=== PATIENT | female | born 1945 | race Caucasian/White ===

== ENCOUNTER 2017-10-17 09:42 | Outpatient (CLI) | payer MEDICARE, OTHER ==
[2017-10-17] VITALS (19 sets, daily range): BP systolic 110–143; BP diastolic 64–87
[~2017-10-17 09:42] MED LIST: ASPI-611 PO; ATOR10TA70 PO; BUPR150T8 PO; COU5T PO; CYCL-1 PO; FURO-150 PO; GLIP-126 PO; LISI-600 PO; METF10002 PO; MULT1TAB74 PO; NITR0.4T48 SL; SITA100T15 PO; SOTA80TA69 PO; ZOLP5TAB8 PO
== END 2017-10-17 23:59 | disposition home or self-care (01) ==
LOC: CARD DIAG 09:42
PROVIDERS: ATTEND Internal Medicine Interventional Cardiology
DX: I95.9 Hypotension, unspecified (principal); I10 Essential (primary) hypertension; E11.9 Type 2 diabetes mellitus without complications; Z90.710 Acquired absence of both cervix and uterus; Z85.820 Personal history of malignant melanoma of skin
CPT/HCPCS: 93660

== ENCOUNTER 2018-08-16 10:23 | Emergency (ER) | payer MEDICARE, OTHER ==
[~2018-08-16] VITALS: Ht 170.2 cm; Wt 89.4 kg
[~2018-08-16 10:23] MED LIST changes: +METF-438 PO; -METF10002 PO; -SOTA80TA69 PO; +SOTA80TA73 PO
[2018-08-16 11:09] LABS: BASOPHILS % (AUTO) 0.2 % (0-1); EOSINOPHILS # (AUTO) 0.2 X10'3 (0-0.9); EOSINOPHILS % (AUTO) 2.5 % (0-6); HEMATOCRIT 38.9 % (35.0-45.0); HEMOGLOBIN 12.7 g/dl (12.0-16.0); LYMPHOCYTES # (AUTO) 1.2 X10'3 (1.1-4.8); LYMPHOCYTES % (AUTO) 18.2 % (21-51); MEAN CORPUSCULAR HEMOGLOBIN 31.3 PG (27.0-31.0); MEAN CORPUSCULAR HGB CONC 32.7 % (33.0-36.5); MEAN CORPUSCULAR VOLUME 95.9 FL (78-98); MONOCYTES # (AUTO) 0.4 X10'3 (0-0.9); MONOCYTES % (AUTO) 5.6 % (2-12); NEUTROPHILS % (AUTO) 73.5 % (42-75); PLATELET COUNT 300 X10'3 (140-440); RED BLOOD COUNT 4.06 X10'6 (4.20-5.60); RED CELL DISTRIBUTION WIDTH 14.1 % (11.5-14.5); WHITE BLOOD COUNT 6.8 X10'3 (4.5-11.0)
[2018-08-16 11:19] LABS: INR 1.9 INR; PROTHROMBIN TIME 18.7 SECONDS (9.0-12.0)
[2018-08-16 11:23] LABS: ALANINE AMINOTRANSFERASE 29 U/L (12-78); ALBUMIN 3.4 G/DL (3.4-5.0); ALKALINE PHOSPHATASE 155 IU/L (46-116); ANION GAP 12 (8-16); ASPARTATE AMINO TRANSFERASE 22 U/L (10-37); BILIRUBIN,TOTAL 0.4 MG/DL (0.1-1.0); BLOOD UREA NITROGEN 25 MG/DL (7-18); BUN/CREATININE RATIO 21.4 (6.6-38.0); CALCIUM 9.3 MG/DL (8.5-10.1); CHLORIDE 102 MMOL/L (99-107); CREATININE 1.17 MG/DL (0.40-0.90); GLUCOSE 195 MG/DL (70-104); POTASSIUM 3.9 MMOL/L (3.5-5.1); SODIUM 140 MMOL/L (135-145); TOTAL CARBON DIOXIDE 26.3 MMOL/L (24-32); TOTAL PROTEIN 6.8 G/DL (6.4-8.2); eGFR 46 ML/MIN
[2018-08-16] MEDS ORDERED: acetaminophen 325mg tablet PO ONE (12:10)
[2018-08-16 12:48] VITALS: BP 128/55
== END 2018-08-16 12:52 | disposition home or self-care (01) ==
LOC: ER 10:23
DX: S00.12XA Contusion of left eyelid and periocular area, initial encounter (principal); S00.11XA Contusion of right eyelid and periocular area, initial encounter; S00.83XA Contusion of other part of head, initial encounter; S09.90XA Unspecified injury of head, initial encounter; I48.91 Unspecified atrial fibrillation; I10 Essential (primary) hypertension; E11.9 Type 2 diabetes mellitus without complications; M19.90 Unspecified osteoarthritis, unspecified site; Z56.0 Unemployment, unspecified; Z90.49 Acquired absence of other specified parts of digestive tract; Z90.710 Acquired absence of both cervix and uterus; Z95.0 Presence of cardiac pacemaker; Z98.890 Other specified postprocedural states; Z88.6 Allergy status to analgesic agent; Z79.82 Long term (current) use of aspirin; Z79.899 Other long term (current) drug therapy; Z79.01 Long term (current) use of anticoagulants; W01.198A Fall on same level from slipping, tripping and stumbling with subsequent striking against other object, initial encounter; Y93.89 Activity, other specified; Y92.89 Other specified places as the place of occurrence of the external cause; Y99.9 Unspecified external cause status
CPT/HCPCS: 36415; 70450; 70486; 80053; 85025; 85610; 93005; 99285

== ENCOUNTER 2020-02-17 01:30 | Inpatient (IN) | payer MEDICARE ==
[~2020-02-17] VITALS: Ht 167.6 cm; Wt 86.4 kg
[2020-02-17] VITALS (13 sets, daily range): BP systolic 98–132; BP diastolic 37–86
[~2020-02-17 01:30] MED LIST changes: +AMIO200T61 PO; -ASPI-611 PO; -ATOR10TA70 PO; +ATOR40TA72 PO; +BACL10TA2 PO; +BUPR-72 PO; -BUPR150T8 PO; -COU5T PO; -CYCL-1 PO; +CYCL-394 PO; -FURO-150 PO; -GLIP-126 PO; +LIRA0.6P2 SQ; -LISI-600 PO; +LISI1TAB32 PO; +LORA-268 PO; -METF-438 PO; +METO-395 PO; -MULT1TAB74 PO; -NITR0.4T48 SL; -SITA100T15 PO; -SOTA80TA73 PO; +WARF2.5T82 PO
[2020-02-17] MEDS ORDERED: METF500T PO (01:55)
[2020-02-17 02:03] LABS: BASOPHILS % (AUTO) 0.5 % (0-1); EOSINOPHILS # (AUTO) 0.2 X10'3 (0-0.9); EOSINOPHILS % (AUTO) 3.3 % (0-6); HEMATOCRIT 35.4 % (35.0-45.0); HEMOGLOBIN 11.7 g/dl (12.0-16.0); MEAN CORPUSCULAR HEMOGLOBIN 32.6 PG (27.0-31.0); MEAN CORPUSCULAR HGB CONC 33.1 g/dL (33.0-36.5); MEAN CORPUSCULAR VOLUME 98.3 FL (78-98); MEAN PLATELET VOLUME 8.5 FL (7.4-10.4); MONOCYTES # (AUTO) 0.4 X10'3 (0-0.9); MONOCYTES % (AUTO) 5.6 % (2-12); NEUTROPHILS # (AUTO) 4.7 X10'3 (1.8-7.7); NEUTROPHILS % (AUTO) 63.6 % (42-75); PLATELET COUNT 282 X10'3 (140-440); RED CELL DISTRIBUTION WIDTH 14.4 % (11.5-14.5); WHITE BLOOD COUNT 7.4 X10'3 (4.5-11.0)
[2020-02-17 02:15] LABS: ALANINE AMINOTRANSFERASE 31 U/L (12-78); ALBUMIN 3.7 G/DL (3.4-5.0); ALBUMIN/GLOBULIN RATIO 1.2 (1.1-1.5); ALKALINE PHOSPHATASE 110 IU/L (46-116); ANION GAP 11 (8-16); ASPARTATE AMINO TRANSFERASE 30 U/L (10-37); BILIRUBIN,TOTAL 0.4 MG/DL (0.1-1.0); BLOOD UREA NITROGEN 26 MG/DL (7-18); BUN/CREATININE RATIO 23.2 (6.6-38.0); CALCIUM 9.3 MG/DL (8.5-10.1); CHLORIDE 103 MMOL/L (99-107); CREATININE 1.12 MG/DL (0.40-0.90); GLUCOSE 173 MG/DL (70-104); POTASSIUM 3.9 MMOL/L (3.5-5.1); SODIUM 139 MMOL/L (135-145); TOTAL PROTEIN 6.7 G/DL (6.4-8.2); eGFR 48 ML/MIN
[2020-02-17 02:21] LABS: MAGNESIUM 1.7 MG/DL (1.5-2.4)
[2020-02-17 02:23] LABS: PARTIAL THROMBOPLASTIN TIME 40 SECONDS (22-32)
[2020-02-17] MEDS ORDERED: magnesium 2GM in 50ml NS 50 ML IV PRN (03:40)
[2020-02-17] MEDS ORDERED: magnesium Cl slow-release 64mg tablet PO PRN (03:40)
[2020-02-17] MEDS ORDERED: potassium Cl 20 mEq SR tablet PO PRN ×2 (03:40)
[2020-02-17] MEDS ORDERED: potassium CL 10mEq/100ml bag 100 ML IV PRN ×2 (03:40)
[2020-02-17] MEDS ORDERED: mag hydrox/Alum hydrox/simeth 30ml oral suspension PO PRN (03:40)
[2020-02-17] MEDS ORDERED: HYDROcodone/acetaminophen 5mg/325mg tablet PO PRN (03:40)
[2020-02-17] MEDS ORDERED: acetaminophen 325mg tablet PO PRN ×2 (03:40)
[2020-02-17] MEDS ORDERED: morphine 2 MG/ML inj. syringe IV PRN (03:40)
[2020-02-17] MEDS ORDERED: magnesium 4gm in 100ml NS 100 ML IV PRN (03:40)
[2020-02-17] MEDS ORDERED: ondansetron/PF 4mg/2ml inj IV PRN (03:40)
[2020-02-17] MEDS: normal saline 1000ml 1,000 ML IV SCH ×2 (03:57→05:49)
[2020-02-17] MEDS ORDERED: regadenoson 0.4mg/5ml syringe IV ONE (04:05)
[2020-02-17] MEDS ORDERED: aminophylline 250mg/10ml inj. IV PRN (04:05)
[2020-02-17] MEDS ORDERED: nitroGLYCERIN 0.4mg SUBLingual tab SL PRN (04:05)
[2020-02-17] MEDS ORDERED: metoprolol tartrate 1mg/ml inj IV PRN (04:05)
--- NOTE | 2020-02-17 04:30 | NUR ---
Patient arrived to the unit accompanied by ED RN, Heber. Patient presented to the ED with constant substernal chest pain accompanied with SOB. Patient was given 81 mg aspirin, nitroglycerin, and is being administered NS at 100ml/hr. Patient is alert and oriented x 4, VSS obtained. Temp:97.9; HR: 73, BP: 116/68; RR: 18; SPO2 96 a RA. Belongings placed on bedside dresser.
--- NOTE | 2020-02-17 06:27 | NUR ---
Problems reprioritized. Patient report given, questions answered & plan of care reviewed with JARRED Pizarro.
[2020-02-17] MEDS ORDERED: pantoprazole 40mg Tablet.DR PO SCH (07:30)
[2020-02-17] MEDS ORDERED: K and/or MAG REPLACEMENT MC SCH (08:00)
[2020-02-17] MEDS ORDERED: heparin, porcine 5000 units/ml vial SQ SCH (08:00)
[2020-02-17] MEDS ORDERED: docusate sod 100mg capsule PO SCH (08:00)
[2020-02-17] MEDS ORDERED: METO-395 PO (13:16)
--- NOTE | 2020-02-17 14:40 | NUR ---
Patient stable for discharge per MD order. All necessary discharge education and information reviewed with patient before signing necessary paperwork. IV discontinued with catheter in tact, ekg monitor removed and returned, all patient belongings packed up and sent with patient. Medication modifications sent to [facility], no new Rx.
[2020-02-17] MEDS ORDERED: temazepam 15mg capsule PO PRN (21:00)
--- NOTE | 2020-02-18 15:21 | NUR ---
Case Management DC follow up: LMVM post DC status, questions, concerns
== END 2020-02-17 14:37 | disposition home or self-care (01) | DRG 311 ==
LOC: ER 01:31 → ED HOLD 03:40 → PCU 3S 04:45
PROVIDERS: ADMIT Internal Medicine; ATTEND Family Medicine
PROC: 4A02XM4 Measurement of Cardiac Total Activity, External Approach (ICD-10-PCS; principal; 2020-02-17)
PROC: 3E073KZ Introduction of Other Diagnostic Substance into Coronary Artery, Percutaneous Approach (ICD-10-PCS; 2020-02-17)
DX: I20.9 Angina pectoris, unspecified (principal); I13.0 Hypertensive heart and chronic kidney disease with heart failure and stage 1 through stage 4 chronic kidney disease, or unspecified chronic kidney disease; I48.91 Unspecified atrial fibrillation; F41.9 Anxiety disorder, unspecified; M19.90 Unspecified osteoarthritis, unspecified site; E11.22 Type 2 diabetes mellitus with diabetic chronic kidney disease; I50.9 Heart failure, unspecified; N18.3 Chronic kidney disease, stage 3 (moderate); Z79.01 Long term (current) use of anticoagulants; Z82.0 Family history of epilepsy and other diseases of the nervous system; Z82.3 Family history of stroke; Z90.710 Acquired absence of both cervix and uterus; Z95.0 Presence of cardiac pacemaker; Z88.5 Allergy status to narcotic agent; Z90.49 Acquired absence of other specified parts of digestive tract
CPT/HCPCS: 36415; 71045; 78452; 80053; 83735; 83880; 84484; 85025; 85610; 85730; 87081; 93005; 93017; 97116; 97161; 97530; 99285; A9500; G0378; J2785; J7030

== ENCOUNTER 2021-01-29 09:39 | Emergency (ER) | payer MEDICARE ==
[~2021-01-29] VITALS: Ht 167.6 cm; Wt 84.4 kg
[~2021-01-29 09:39] MED LIST changes: +METF500T PO; -METO-395 PO; +METO-539 PO
[2021-01-29 10:58] LABS: PARTIAL THROMBOPLASTIN TIME 47 SECONDS (22-32)
[2021-01-29] MEDS ORDERED: acetaminophen 325mg tablet PO ONE (11:55)
--- NOTE | 2021-01-29 12:39 | NUR ---
DUE MED GIVEN,CALL LIGHT WITHIN REACH.
[2021-01-29 15:19] VITALS: BP 124/88
== END 2021-01-29 15:21 | disposition home or self-care (01) ==
LOC: ER 09:40
DX: S00.12XA Contusion of left eyelid and periocular area, initial encounter (principal); S60.812A Abrasion of left wrist, initial encounter; M54.5 Low back pain; M25.552 Pain in left hip; R07.81 Pleurodynia; M25.562 Pain in left knee; R51.9 Headache, unspecified; I48.91 Unspecified atrial fibrillation; I11.0 Hypertensive heart disease with heart failure; I50.9 Heart failure, unspecified; E11.9 Type 2 diabetes mellitus without complications; M19.90 Unspecified osteoarthritis, unspecified site; Z90.49 Acquired absence of other specified parts of digestive tract; Z90.710 Acquired absence of both cervix and uterus; Z95.0 Presence of cardiac pacemaker; Z56.0 Unemployment, unspecified; Z88.8 Allergy status to other drugs, medicaments and biological substances; Z88.6 Allergy status to analgesic agent; Z79.899 Other long term (current) drug therapy; Z79.84 Long term (current) use of oral hypoglycemic drugs; Z79.01 Long term (current) use of anticoagulants; W18.39XA Other fall on same level, initial encounter; Y93.89 Activity, other specified; Y92.89 Other specified places as the place of occurrence of the external cause; Y99.8 Other external cause status
CPT/HCPCS: 36415; 70450; 71045; 72100; 72125; 72170; 73110; 73560; 85610; 85730; 99285

== ENCOUNTER 2021-12-07 15:33 | Emergency (ER) | payer MEDICARE ==
[~2021-12-07] VITALS: Ht 170.2 cm; Wt 79.1 kg
[~2021-12-07 15:33] MED LIST changes: -LISI1TAB32 PO; +LISI1TAB49 PO
[2021-12-07 16:05] LABS: BASOPHILS % (AUTO) 0.3 % (0-1); EOSINOPHILS # (AUTO) 0.1 X10'3 (0-0.9); EOSINOPHILS % (AUTO) 1.5 % (0-6); HEMATOCRIT 35.8 % (35.0-45.0); HEMOGLOBIN 11.6 g/dl (12.0-16.0); LYMPHOCYTES # (AUTO) 1.7 X10'3 (1.1-4.8); LYMPHOCYTES % (AUTO) 20.4 % (21-51); MEAN CORPUSCULAR HEMOGLOBIN 28.2 PG (27.0-31.0); MEAN CORPUSCULAR HGB CONC 32.4 g/dL (33.0-36.5); MEAN PLATELET VOLUME 8.2 FL (7.4-10.4); MONOCYTES # (AUTO) 0.7 X10'3 (0-0.9); MONOCYTES % (AUTO) 8.1 % (2-12); NEUTROPHILS # (AUTO) 5.9 X10'3 (1.8-7.7); NEUTROPHILS % (AUTO) 69.7 % (42-75); PLATELET COUNT 322 X10'3 (140-440); RED BLOOD COUNT 4.11 X10'6 (4.20-5.60); RED CELL DISTRIBUTION WIDTH 15.6 % (11.5-14.5); WHITE BLOOD COUNT 8.5 X10'3 (4.5-11.0)
[2021-12-07 16:23] LABS: ALANINE AMINOTRANSFERASE 23 U/L (12-78); ALBUMIN 3.6 G/DL (3.4-5.0); ALBUMIN/GLOBULIN RATIO 1.1 (1.1-1.5); ALKALINE PHOSPHATASE 99 IU/L (46-116); ANION GAP 12 (8-16); ASPARTATE AMINO TRANSFERASE 19 U/L (10-37); BILIRUBIN,TOTAL 0.4 MG/DL (0.1-1.0); BLOOD UREA NITROGEN 36 MG/DL (7-18); BUN/CREATININE RATIO 25.2 (6.6-38.0); CALCIUM 9.5 MG/DL (8.5-10.1); CHLORIDE 102 MMOL/L (99-107); CREATININE 1.43 MG/DL (0.40-0.90); GLUCOSE 172 MG/DL (70-104); POTASSIUM 4.5 MMOL/L (3.5-5.1); SODIUM 137 MMOL/L (135-145); TOTAL CARBON DIOXIDE 22.9 MMOL/L (24-32); TOTAL PROTEIN 6.9 G/DL (6.4-8.2); eGFR 36 ML/MIN
[2021-12-07] MEDS ORDERED: mag hydrox/Alum hydrox/simeth 30ml oral suspension PO ONE (21:20)
[2021-12-07] MEDS ORDERED: normal saline 1000ML IV soln IVB ONE (21:20)
[2021-12-07] MEDS ORDERED: etomidate 2mg/ml inj. IV ONE (21:30)
[2021-12-07 23:17] VITALS: BP 133/67
== END 2021-12-07 23:18 | disposition home or self-care (01) ==
LOC: ER 15:35
DX: I48.92 Unspecified atrial flutter (principal); R53.1 Weakness; R06.02 Shortness of breath; R53.83 Other fatigue; I48.91 Unspecified atrial fibrillation; I11.0 Hypertensive heart disease with heart failure; I50.9 Heart failure, unspecified; E11.9 Type 2 diabetes mellitus without complications; M19.90 Unspecified osteoarthritis, unspecified site; Z76.89 Persons encountering health services in other specified circumstances; Z90.49 Acquired absence of other specified parts of digestive tract; Z90.710 Acquired absence of both cervix and uterus; Z95.0 Presence of cardiac pacemaker; Z98.890 Other specified postprocedural states; Z56.0 Unemployment, unspecified; Z88.6 Allergy status to analgesic agent; Z88.8 Allergy status to other drugs, medicaments and biological substances; Z79.899 Other long term (current) drug therapy
CPT/HCPCS: 36415; 71045; 80053; 83880; 84484; 85025; 92960; 93005; 99285; J3490; J7030; 94760

== ENCOUNTER 2022-04-20 10:53 | Emergency (ER) | payer MEDICARE ==
[~2022-04-20] VITALS: Ht 170.2 cm; Wt 174.0 kg
[2022-04-20 11:29] LABS: BASOPHILS # (AUTO) 0.1 X10'3 (0-0.2); BASOPHILS % (AUTO) 0.7 % (0-1); EOSINOPHILS # (AUTO) 0.2 X10'3 (0-0.9); EOSINOPHILS % (AUTO) 2.3 % (0-6); HEMATOCRIT 36.6 % (35.0-45.0); LYMPHOCYTES % (AUTO) 22.8 % (21-51); MEAN CORPUSCULAR HEMOGLOBIN 27.9 PG (27.0-31.0); MEAN CORPUSCULAR HGB CONC 32.7 g/dL (33.0-36.5); MEAN CORPUSCULAR VOLUME 85.4 FL (78-98); MEAN PLATELET VOLUME 8.2 FL (7.4-10.4); MONOCYTES # (AUTO) 0.8 X10'3 (0-0.9); MONOCYTES % (AUTO) 8.9 % (2-12); NEUTROPHILS # (AUTO) 5.6 X10'3 (1.8-7.7); NEUTROPHILS % (AUTO) 65.3 % (42-75); PLATELET COUNT 344 X10'3 (140-440); RED BLOOD COUNT 4.29 X10'6 (4.20-5.60); RED CELL DISTRIBUTION WIDTH 16.2 % (11.5-14.5); WHITE BLOOD COUNT 8.6 X10'3 (4.5-11.0)
[2022-04-20 11:49] LABS: ALANINE AMINOTRANSFERASE 20 U/L (12-78); ALBUMIN 3.8 G/DL (3.4-5.0); ALBUMIN/GLOBULIN RATIO 1.2 (1.1-1.5); ALKALINE PHOSPHATASE 87 IU/L (46-116); ANION GAP 10 (8-16); ASPARTATE AMINO TRANSFERASE 22 U/L (10-37); BILIRUBIN,TOTAL 0.5 MG/DL (0.1-1.0); BLOOD UREA NITROGEN 34 MG/DL (7-18); BUN/CREATININE RATIO 27.2 (6.6-38.0); CALCIUM 9.6 MG/DL (8.5-10.1); CHLORIDE 101 MMOL/L (99-107); CREATININE 1.25 MG/DL (0.40-0.90); GLUCOSE 108 MG/DL (70-104); POTASSIUM 4.7 MMOL/L (3.5-5.1); SODIUM 136 MMOL/L (135-145); TOTAL CARBON DIOXIDE 25.2 MMOL/L (24-32); TOTAL PROTEIN 7.1 G/DL (6.4-8.2); eGFR 42 ML/MIN
--- NOTE | 2022-04-20 11:59 | NUR ---
DR GUILLORY NOTIFIED OF PTS LOW BP AND SYMPTOMATIC RAPID HEART RATE AND SOB. HE STATES HE WILL BE RIGHT IN TO SEE HER
[2022-04-20] MEDS ORDERED: normal saline 1000ML IV soln IVB ONE (12:15)
[2022-04-20] MEDS ORDERED: LORazepam 2 mg/ml vial IV ONE (12:15)
[2022-04-20] MEDS ORDERED: diltiazem 5mg/ml 5ml inj. IV ONE (13:30)
[2022-04-20] MEDS ORDERED: iohexol 350MG/ML 100ml bottle IV ONE (14:04)
[2022-04-20] MEDS ORDERED: ALPR0.252 PO (14:25)
[2022-04-20] MEDS ORDERED: metoprolol tartrate 1mg/ml inj IV ONE (17:05)
[2022-04-20 19:09] VITALS: BP 105/62
== END 2022-04-20 19:15 | disposition home or self-care (01) ==
LOC: ER 10:53
DX: F43.21 Adjustment disorder with depressed mood (principal); R00.2 Palpitations; I11.0 Hypertensive heart disease with heart failure; E11.9 Type 2 diabetes mellitus without complications; Z98.890 Other specified postprocedural states; Z88.6 Allergy status to analgesic agent; Z88.8 Allergy status to other drugs, medicaments and biological substances
CPT/HCPCS: 36415; 71045; 71275; 80053; 83880; 84484; 85025; 93005; 96361; 96374; 96375; 99285; J2060; J3490; J7030; Q9967

== ENCOUNTER 2022-06-28 10:36 | Emergency (ER) | payer MEDICARE ==
[~2022-06-28] VITALS: Ht 167.6 cm; Wt 79.0 kg
[~2022-06-28 10:36] MED LIST changes: +ALPR0.252 PO
[2022-06-28 11:30] LABS: BASOPHILS % (AUTO) 0.3 % (0-1); EOSINOPHILS # (AUTO) 0.1 X10'3 (0-0.9); EOSINOPHILS % (AUTO) 0.4 % (0-6); HEMATOCRIT 33.2 % (35.0-45.0); HEMOGLOBIN 10.7 g/dl (12.0-16.0); LYMPHOCYTES % (AUTO) 6.4 % (21-51); MEAN CORPUSCULAR HEMOGLOBIN 27.5 PG (27.0-31.0); MEAN CORPUSCULAR HGB CONC 32.3 g/dL (33.0-36.5); MEAN CORPUSCULAR VOLUME 85.2 FL (78-98); MEAN PLATELET VOLUME 7.9 FL (7.4-10.4); MONOCYTES # (AUTO) 0.9 X10'3 (0-0.9); MONOCYTES % (AUTO) 5.8 % (2-12); NEUTROPHILS # (AUTO) 13.3 X10'3 (1.8-7.7); NEUTROPHILS % (AUTO) 87.1 % (42-75); PLATELET COUNT 479 X10'3 (140-440); RED BLOOD COUNT 3.89 X10'6 (4.20-5.60); RED CELL DISTRIBUTION WIDTH 16.9 % (11.5-14.5); WHITE BLOOD COUNT 15.2 X10'3 (4.5-11.0)
[2022-06-28 11:53] LABS: ALANINE AMINOTRANSFERASE 17 U/L (12-78); ALBUMIN/GLOBULIN RATIO 0.9 (1.1-1.5); ALKALINE PHOSPHATASE 86 IU/L (46-116); ANION GAP 11 (8-16); ASPARTATE AMINO TRANSFERASE 13 U/L (10-37); BILIRUBIN,TOTAL 0.7 MG/DL (0.1-1.0); BLOOD UREA NITROGEN 11 MG/DL (7-18); BUN/CREATININE RATIO 12.6 (6.6-38.0); CALCIUM 9.5 MG/DL (8.5-10.1); CHLORIDE 100 MMOL/L (99-107); CREATININE 0.87 MG/DL (0.40-0.90); GLUCOSE 166 MG/DL (70-104); SODIUM 141 MMOL/L (135-145); TOTAL CARBON DIOXIDE 29.7 MMOL/L (24-32); TOTAL PROTEIN 6.4 G/DL (6.4-8.2); eGFR 63 ML/MIN
[2022-06-28] MEDS ORDERED: potassium Cl 20 mEq SR tablet PO STA (11:59)
[2022-06-28] MEDS ORDERED: potassium Cl 10 mEq/100mL bag IV ONE (12:00)
[2022-06-28] MEDS ORDERED: methylPREDNISolone sod succ 125mg/2ml vial IV ONE (12:10)
[2022-06-28] MEDS ORDERED: acetaminophen 325mg tablet PO ONE (12:40)
[2022-06-28 13:15] VITALS: BP 127/82
[2022-06-28 14:01] LABS: CLARITY,URINE CLEAR (Clear); COLOR,URINE YELLOW (Yellow); GLUCOSE, URINE NEGATIVE (Neg); KETONES,URINE NEGATIVE (Neg); LEUKOCYTE ESTERASE ,URINE NEGATIVE (Neg); NITRITES, URINE NEGATIVE (Neg); OCCULT BLOOD,URINE NEGATIVE (Neg); PROTEIN,URINE NEGATIVE (Neg); UROBILINOGEN,URINE 0.2 E.U/dL (0.2-1.0)
[2022-06-28 14:03] LABS: UA COLLECTION TYPE STRAIGHT CATH
[2022-06-28] MEDS ORDERED: PRED10TA23 PO (14:27)
== END 2022-06-28 14:15 | disposition home or self-care (01) ==
LOC: ER 10:37
DX: M35.3 Polymyalgia rheumatica (principal); M79.10 Myalgia, unspecified site; I11.0 Hypertensive heart disease with heart failure; E11.9 Type 2 diabetes mellitus without complications; Z56.0 Unemployment, unspecified; Z88.6 Allergy status to analgesic agent; Z79.899 Other long term (current) drug therapy; Z79.1 Long term (current) use of non-steroidal anti-inflammatories (NSAID); Z79.84 Long term (current) use of oral hypoglycemic drugs; Z79.2 Long term (current) use of antibiotics
CPT/HCPCS: 36415; 71045; 80053; 81003; 83880; 84145; 84484; 85025; 93005; 96374; 96375; 99285; J2930; J3480; J7040; A4353

== ENCOUNTER 2022-09-23 13:55 | Emergency (ER) | payer MEDICARE ==
[~2022-09-23] VITALS: Ht 167.6 cm; Wt 86.4 kg
[2022-09-23 14:22] LABS: BASOPHILS % (AUTO) 0.3 % (0-1); EOSINOPHILS % (AUTO) 0.1 % (0-6); HEMATOCRIT 33.5 % (35.0-45.0); HEMOGLOBIN 10.5 g/dl (12.0-16.0); LYMPHOCYTES % (AUTO) 8.7 % (21-51); MEAN CORPUSCULAR HGB CONC 31.3 g/dL (33.0-36.5); MEAN CORPUSCULAR VOLUME 86.2 FL (78-98); MEAN PLATELET VOLUME 7.5 FL (7.4-10.4); MONOCYTES # (AUTO) 0.4 X10'3 (0-0.9); MONOCYTES % (AUTO) 3.2 % (2-12); NEUTROPHILS # (AUTO) 10.1 X10'3 (1.8-7.7); NEUTROPHILS % (AUTO) 87.7 % (42-75); PLATELET COUNT 343 X10'3 (140-440); RED BLOOD COUNT 3.89 X10'6 (4.20-5.60); WHITE BLOOD COUNT 11.5 X10'3 (4.5-11.0)
[2022-09-23 14:36] LABS: ALANINE AMINOTRANSFERASE 18 U/L (12-78); ALBUMIN 3.5 G/DL (3.4-5.0); ALBUMIN/GLOBULIN RATIO 1.1 (1.1-1.5); ALKALINE PHOSPHATASE 131 IU/L (46-116); ANION GAP 12 (8-16); ASPARTATE AMINO TRANSFERASE 14 U/L (10-37); BILIRUBIN,TOTAL 0.4 MG/DL (0.1-1.0); BLOOD UREA NITROGEN 43 MG/DL (7-18); BUN/CREATININE RATIO 33.1 (6.6-38.0); CALCIUM 9.3 MG/DL (8.5-10.1); CHLORIDE 101 MMOL/L (99-107); GLUCOSE 274 MG/DL (70-104); MAGNESIUM 1.7 MG/DL (1.5-2.4); POTASSIUM 5.2 MMOL/L (3.5-5.1); SODIUM 133 MMOL/L (135-145); TOTAL CARBON DIOXIDE 20.4 MMOL/L (24-32); TOTAL PROTEIN 6.7 G/DL (6.4-8.2); eGFR 40 ML/MIN
[2022-09-23 14:37] VITALS: BP 205/68
[2022-09-23 15:02] LABS: D-DIMER < 0.19 MG/L FEU (0-0.50)
[2022-09-23 15:05] LABS: PLATELET ESTIMATE NORMAL
[2022-09-23 15:06] LABS: ACANTHOCYTES FEW; ANISOCYTOSIS 2+; ELLIPTOCYTES 1+; POLYCHROMASIA FEW; TEAR DROP CELLS FEW
== END 2022-09-23 18:26 | disposition home or self-care (01) ==
LOC: ER 13:56
DX: R06.02 Shortness of breath (principal); I11.9 Hypertensive heart disease without heart failure; E11.9 Type 2 diabetes mellitus without complications; Z56.0 Unemployment, unspecified; Z88.6 Allergy status to analgesic agent; Z88.8 Allergy status to other drugs, medicaments and biological substances; Z79.899 Other long term (current) drug therapy; Z79.1 Long term (current) use of non-steroidal anti-inflammatories (NSAID); Z79.2 Long term (current) use of antibiotics
CPT/HCPCS: 36415; 71045; 80053; 83735; 83880; 84484; 85008; 85025; 85379; 85610; 93005; 99285

== ENCOUNTER 2023-01-26 15:52 | Emergency (ER) | payer MEDICARE ==
[~2023-01-26] VITALS: Ht 167.6 cm; Wt 98.6 kg
[2023-01-26 16:06] VITALS: BP 103/41
[2023-01-26] MEDS ORDERED: normal saline 1000ML IV soln IVB ONE (16:45)
[2023-01-26 17:21] LABS: BASOPHILS % (AUTO) 0.2 % (0-1); EOSINOPHILS % (AUTO) 0.1 % (0-6); HEMATOCRIT 30.5 % (35.0-45.0); HEMOGLOBIN 9.9 g/dl (12.0-16.0); LYMPHOCYTES # (AUTO) 0.8 X10'3 (1.1-4.8); LYMPHOCYTES % (AUTO) 8.4 % (21-51); MEAN CORPUSCULAR HEMOGLOBIN 27.1 PG (27.0-31.0); MEAN CORPUSCULAR HGB CONC 32.4 g/dL (33.0-36.5); MEAN CORPUSCULAR VOLUME 83.7 FL (78-98); MEAN PLATELET VOLUME 7.5 FL (7.4-10.4); MONOCYTES # (AUTO) 0.4 X10'3 (0-0.9); MONOCYTES % (AUTO) 4.4 % (2-12); NEUTROPHILS # (AUTO) 8.7 X10'3 (1.8-7.7); NEUTROPHILS % (AUTO) 86.9 % (42-75); PLATELET COUNT 345 X10'3 (140-440); RED BLOOD COUNT 3.65 X10'6 (4.20-5.60); RED CELL DISTRIBUTION WIDTH 18.8 % (11.5-14.5)
[2023-01-26 17:33] LABS: ALANINE AMINOTRANSFERASE 30 U/L (12-78); ALBUMIN 3.7 G/DL (3.4-5.0); ALBUMIN/GLOBULIN RATIO 1.1 (1.1-1.5); ALKALINE PHOSPHATASE 78 IU/L (46-116); ANION GAP 13 (8-16); ASPARTATE AMINO TRANSFERASE 15 U/L (10-37); BILIRUBIN,TOTAL 0.3 MG/DL (0.1-1.0); BLOOD UREA NITROGEN 53 MG/DL (7-18); BUN/CREATININE RATIO 29.4 (10.0-20.0); CHLORIDE 101 MMOL/L (99-107); GLUCOSE 211 MG/DL (70-104); POTASSIUM 5.1 MMOL/L (3.5-5.1); SODIUM 136 MMOL/L (135-145); eGFR 27 ML/MIN
[2023-01-26 18:00] LABS: CLARITY,URINE CLOUDY (Clear); COLOR,URINE YELLOW (Yellow); GLUCOSE, URINE NEGATIVE (Neg); KETONES,URINE NEGATIVE (Neg); LEUKOCYTE ESTERASE ,URINE NEGATIVE (Neg); NITRITES, URINE NEGATIVE (Neg); OCCULT BLOOD,URINE NEGATIVE (Neg); PH,URINE 5.5 (4.8-8.0); PROTEIN,URINE NEGATIVE (Neg); UROBILINOGEN,URINE 0.2 E.U/dL (0.2-1.0)
[2023-01-26 18:09] LABS: UA COLLECTION TYPE CLN CATCH MIDSTREAM
[2023-01-26 18:16] LABS: BACTERIA,URINE 1+ /HPF (Neg); MUCUS STRANDS FEW /LPF (Neg); RBC,URINE NONE SEEN /HPF (0-2); SQUAMOUS EPITHELIAL CELL,UR MANY /LPF (FEW)
[2023-01-26 18:27] LABS: PLATELET ESTIMATE NORMAL
[2023-01-26 18:28] LABS: ANISOCYTOSIS 2+; ELLIPTOCYTES 1+; MICROCYTOSIS 1+; POIKILOCYTOSIS 1+
[2023-01-26] MEDS ORDERED: CALC625T62 PO (19:07)
[2023-01-26] MEDS ORDERED: normal saline 1000ml 1,000 ML IV ONE (19:10)
== END 2023-01-26 20:16 | disposition home or self-care (01) ==
LOC: ER 15:53
DX: K59.00 Constipation, unspecified (principal); I11.0 Hypertensive heart disease with heart failure; N18.9 Chronic kidney disease, unspecified; E11.9 Type 2 diabetes mellitus without complications; Z88.8 Allergy status to other drugs, medicaments and biological substances; Z88.6 Allergy status to analgesic agent; Z79.899 Other long term (current) drug therapy; Z79.1 Long term (current) use of non-steroidal anti-inflammatories (NSAID)
CPT/HCPCS: 36415; 74018; 80053; 81001; 85008; 85025; 96360; 96361; 99284; J7030

== ENCOUNTER 2023-02-10 15:00 | Emergency (ER) | payer MEDICARE ==
[~2023-02-10] VITALS: Ht 167.6 cm; Wt 95.0 kg
[~2023-02-10 15:00] MED LIST changes: +AMI200T PO; -AMIO200T61 PO; +CALC625T62 PO
[2023-02-10 15:25] LABS: BASOPHILS % (AUTO) 0.3 % (0-1); EOSINOPHILS % (AUTO) 0.3 % (0-6); HEMATOCRIT 31.7 % (35.0-45.0); LYMPHOCYTES # (AUTO) 1.1 X10'3 (1.1-4.8); MEAN CORPUSCULAR HEMOGLOBIN 26.6 PG (27.0-31.0); MEAN CORPUSCULAR HGB CONC 31.6 g/dL (33.0-36.5); MEAN CORPUSCULAR VOLUME 84.2 FL (78-98); MEAN PLATELET VOLUME 7.5 FL (7.4-10.4); MONOCYTES # (AUTO) 0.3 X10'3 (0-0.9); MONOCYTES % (AUTO) 3.2 % (2-12); NEUTROPHILS # (AUTO) 8.7 X10'3 (1.8-7.7); NEUTROPHILS % (AUTO) 85.2 % (42-75); PLATELET COUNT 369 X10'3 (140-440); RED BLOOD COUNT 3.76 X10'6 (4.20-5.60); RED CELL DISTRIBUTION WIDTH 18.9 % (11.5-14.5); WHITE BLOOD COUNT 10.2 X10'3 (4.5-11.0)
[2023-02-10 15:42] LABS: ALANINE AMINOTRANSFERASE 23 U/L (12-78); ALBUMIN 3.6 G/DL (3.4-5.0); ALBUMIN/GLOBULIN RATIO 1.2 (1.1-1.5); ALKALINE PHOSPHATASE 73 IU/L (46-116); ANION GAP 11 (8-16); ASPARTATE AMINO TRANSFERASE 20 U/L (10-37); BILIRUBIN,TOTAL 0.5 MG/DL (0.1-1.0); BLOOD UREA NITROGEN 36 MG/DL (7-18); BUN/CREATININE RATIO 21.3 (10.0-20.0); CALCIUM 10.1 MG/DL (8.5-10.1); CHLORIDE 102 MMOL/L (99-107); CREATININE 1.69 MG/DL (0.40-0.90); GLUCOSE 277 MG/DL (70-104); POTASSIUM 5.1 MMOL/L (3.5-5.1); SODIUM 136 MMOL/L (135-145); TOTAL CARBON DIOXIDE 22.6 MMOL/L (24-32); TOTAL PROTEIN 6.6 G/DL (6.4-8.2); eGFR 29 ML/MIN
--- NOTE | 2023-02-10 16:35 | NUR ---
BACK TO ROOM VIA WC
[2023-02-10 17:24] LABS: ANISOCYTOSIS 2+; PLATELET ESTIMATE NORMAL
[2023-02-10 17:25] LABS: BURR CELLS 1+; ELLIPTOCYTES 1+; POLYCHROMASIA FEW; TEAR DROP CELLS FEW
[2023-02-10 18:04] VITALS: BP 93/50
== END 2023-02-10 18:06 | disposition home or self-care (01) ==
LOC: ER 15:00
DX: R21 Rash and other nonspecific skin eruption (principal); R07.89 Other chest pain; I13.0 Hypertensive heart and chronic kidney disease with heart failure and stage 1 through stage 4 chronic kidney disease, or unspecified chronic kidney disease; I50.9 Heart failure, unspecified; E11.22 Type 2 diabetes mellitus with diabetic chronic kidney disease; N18.9 Chronic kidney disease, unspecified; M19.90 Unspecified osteoarthritis, unspecified site; Z88.5 Allergy status to narcotic agent; Z88.6 Allergy status to analgesic agent; Z90.710 Acquired absence of both cervix and uterus; Z56.0 Unemployment, unspecified
CPT/HCPCS: 36415; 71045; 80053; 83735; 83880; 84484; 85008; 85025; 93005; 99285

== ENCOUNTER 2023-02-27 13:20 | Emergency (ER) | payer MEDICARE ==
[~2023-02-27] VITALS: Ht 167.6 cm; Wt 93.6 kg
[~2023-02-27 13:20] MED LIST changes: -AMI200T PO; +AMIO200T61 PO
[2023-02-27 13:37] LABS: BASOPHILS % (AUTO) 0.4 % (0-1); EOSINOPHILS # (AUTO) 0.1 X10'3 (0-0.9); EOSINOPHILS % (AUTO) 0.9 % (0-6); HEMATOCRIT 33.7 % (35.0-45.0); HEMOGLOBIN 10.6 g/dl (12.0-16.0); LYMPHOCYTES # (AUTO) 2.8 X10'3 (1.1-4.8); MEAN CORPUSCULAR HEMOGLOBIN 25.9 PG (27.0-31.0); MEAN CORPUSCULAR HGB CONC 31.6 g/dL (33.0-36.5); MEAN PLATELET VOLUME 7.2 FL (7.4-10.4); MONOCYTES # (AUTO) 0.8 X10'3 (0-0.9); MONOCYTES % (AUTO) 8.4 % (2-12); NEUTROPHILS % (AUTO) 61.3 % (42-75); PLATELET COUNT 424 X10'3 (140-440); RED CELL DISTRIBUTION WIDTH 18.2 % (11.5-14.5); WHITE BLOOD COUNT 9.8 X10'3 (4.5-11.0)
[2023-02-27 13:52] LABS: ALANINE AMINOTRANSFERASE 23 U/L (12-78); ALBUMIN 3.9 G/DL (3.4-5.0); ALBUMIN/GLOBULIN RATIO 1.4 (1.1-1.5); ALKALINE PHOSPHATASE 56 IU/L (46-116); ANION GAP 13 (8-16); ASPARTATE AMINO TRANSFERASE 16 U/L (10-37); BILIRUBIN,TOTAL 0.4 MG/DL (0.1-1.0); BLOOD UREA NITROGEN 58 MG/DL (7-18); BUN/CREATININE RATIO 27.5 (10.0-20.0); CALCIUM 9.9 MG/DL (8.5-10.1); CHLORIDE 99 MMOL/L (99-107); CREATININE 2.11 MG/DL (0.40-0.90); GLUCOSE 155 MG/DL (70-104); POTASSIUM 5.1 MMOL/L (3.5-5.1); SODIUM 136 MMOL/L (135-145); TOTAL CARBON DIOXIDE 24.3 MMOL/L (24-32); TOTAL PROTEIN 6.7 G/DL (6.4-8.2); eGFR 23 ML/MIN
[2023-02-27 13:59] LABS: MAGNESIUM 1.9 MG/DL (1.5-2.4)
[2023-02-27] MEDS ORDERED: aspirin 325mg tablet PO ONE (15:15)
[2023-02-27] MEDS ORDERED: normal saline 1000ml 1,000 ML IV ONE (15:30)
[2023-02-27] MEDS ORDERED: DILT-35 PO (17:07)
[2023-02-27 17:33] VITALS: BP 114/74
== END 2023-02-27 17:34 | disposition home or self-care (01) ==
LOC: ER 13:20
DX: E86.0 Dehydration (principal); I95.9 Hypotension, unspecified; I50.9 Heart failure, unspecified; N18.9 Chronic kidney disease, unspecified; E11.9 Type 2 diabetes mellitus without complications; Z88.6 Allergy status to analgesic agent; Z79.899 Other long term (current) drug therapy
CPT/HCPCS: 36415; 71045; 80053; 83735; 83880; 84484; 85025; 85610; 93005; 96360; 99285; J7030; A4620

== ENCOUNTER 2023-03-02 01:50 | Emergency (ER) | payer MEDICARE ==
[~2023-03-02] VITALS: Ht 167.6 cm; Wt 92.7 kg
[~2023-03-02 01:50] MED LIST changes: +DILT-35 PO
[2023-03-02 02:26] LABS: BASOPHILS % (AUTO) 0.5 % (0-1); EOSINOPHILS # (AUTO) 0.1 X10'3 (0-0.9); EOSINOPHILS % (AUTO) 0.9 % (0-6); HEMATOCRIT 30.2 % (35.0-45.0); HEMOGLOBIN 9.7 g/dl (12.0-16.0); LYMPHOCYTES # (AUTO) 2.5 X10'3 (1.1-4.8); LYMPHOCYTES % (AUTO) 23.4 % (21-51); MEAN CORPUSCULAR HGB CONC 32.2 g/dL (33.0-36.5); MEAN CORPUSCULAR VOLUME 80.6 FL (78-98); MEAN PLATELET VOLUME 7.5 FL (7.4-10.4); MONOCYTES # (AUTO) 0.7 X10'3 (0-0.9); MONOCYTES % (AUTO) 6.3 % (2-12); NEUTROPHILS # (AUTO) 7.3 X10'3 (1.8-7.7); NEUTROPHILS % (AUTO) 68.9 % (42-75); PLATELET COUNT 359 X10'3 (140-440); RED BLOOD COUNT 3.74 X10'6 (4.20-5.60); RED CELL DISTRIBUTION WIDTH 18.2 % (11.5-14.5); WHITE BLOOD COUNT 10.6 X10'3 (4.5-11.0)
[2023-03-02 02:40] LABS: ALANINE AMINOTRANSFERASE 24 U/L (12-78); ALBUMIN 3.9 G/DL (3.4-5.0); ALBUMIN/GLOBULIN RATIO 1.4 (1.1-1.5); ALKALINE PHOSPHATASE 86 IU/L (46-116); ANION GAP 5 (8-16); ASPARTATE AMINO TRANSFERASE 15 U/L (10-37); BILIRUBIN,TOTAL 0.3 MG/DL (0.1-1.0); BLOOD UREA NITROGEN 48 MG/DL (7-18); CALCIUM 9.8 MG/DL (8.5-10.1); CHLORIDE 102 MMOL/L (99-107); CREATININE 1.41 MG/DL (0.40-0.90); GLUCOSE 125 MG/DL (70-104); POTASSIUM 4.5 MMOL/L (3.5-5.1); SODIUM 134 MMOL/L (135-145); TOTAL CARBON DIOXIDE 27.2 MMOL/L (24-32); TOTAL PROTEIN 6.7 G/DL (6.4-8.2); eGFR 36 ML/MIN
[2023-03-02 05:04] VITALS: BP 106/55
[2023-03-02] MEDS ORDERED: TETanus/Pertussis (Acell)/Diphther VAC/PF (Tdap-Adult) 0.5ml syringe IMVAC ONE (05:10)
== END 2023-03-02 05:27 | disposition home or self-care (01) ==
LOC: ER 01:51
DX: S51.812A Laceration without foreign body of left forearm, initial encounter (principal); T45.515A Adverse effect of anticoagulants, initial encounter; I13.0 Hypertensive heart and chronic kidney disease with heart failure and stage 1 through stage 4 chronic kidney disease, or unspecified chronic kidney disease; I50.9 Heart failure, unspecified; E11.22 Type 2 diabetes mellitus with diabetic chronic kidney disease; N18.9 Chronic kidney disease, unspecified; M19.90 Unspecified osteoarthritis, unspecified site; Z88.5 Allergy status to narcotic agent; Z88.6 Allergy status to analgesic agent; Z90.710 Acquired absence of both cervix and uterus; Z90.49 Acquired absence of other specified parts of digestive tract; W45.8XXA Other foreign body or object entering through skin, initial encounter; Y93.89 Activity, other specified; Y92.89 Other specified places as the place of occurrence of the external cause; Y99.8 Other external cause status
CPT/HCPCS: 36415; 80053; 85025; 85610; 90471; 90715; 99284; A6222; A6258; A6446; A6449

== ENCOUNTER 2023-05-02 14:18 | Emergency (ER) | payer MEDICARE ==
[~2023-05-02] VITALS: Ht 167.6 cm; Wt 40.9 kg
[~2023-05-02 14:18] MED LIST changes: +AMI200T PO; -AMIO200T61 PO
[2023-05-02 14:41] LABS: BASOPHILS % (AUTO) 0.3 % (0-1); EOSINOPHILS # (AUTO) 0.1 X10'3 (0-0.9); EOSINOPHILS % (AUTO) 0.8 % (0-6); HEMATOCRIT 29.5 % (35.0-45.0); HEMOGLOBIN 9.1 g/dl (12.0-16.0); LYMPHOCYTES # (AUTO) 1.3 X10'3 (1.1-4.8); LYMPHOCYTES % (AUTO) 13.9 % (21-51); MEAN CORPUSCULAR HEMOGLOBIN 25.1 PG (27.0-31.0); MEAN CORPUSCULAR HGB CONC 30.8 g/dL (33.0-36.5); MEAN CORPUSCULAR VOLUME 81.6 FL (78-98); MEAN PLATELET VOLUME 8.2 FL (7.4-10.4); MONOCYTES # (AUTO) 0.6 X10'3 (0-0.9); MONOCYTES % (AUTO) 6.3 % (2-12); NEUTROPHILS # (AUTO) 7.1 X10'3 (1.8-7.7); NEUTROPHILS % (AUTO) 78.7 % (42-75); PLATELET COUNT 295 X10'3 (140-440); RED BLOOD COUNT 3.62 X10'6 (4.20-5.60); RED CELL DISTRIBUTION WIDTH 18.3 % (11.5-14.5)
[2023-05-02 14:46] VITALS: TEMP 98
[2023-05-02 14:55] LABS: ALANINE AMINOTRANSFERASE 18 U/L (12-78); ALBUMIN 3.3 G/DL (3.4-5.0); ALBUMIN/GLOBULIN RATIO 1.2 (1.1-1.5); ALKALINE PHOSPHATASE 75 IU/L (46-116); ANION GAP 11 (8-16); ASPARTATE AMINO TRANSFERASE 19 U/L (10-37); BILIRUBIN,TOTAL 0.4 MG/DL (0.1-1.0); BLOOD UREA NITROGEN 51 MG/DL (7-18); BUN/CREATININE RATIO 27.7 (10.0-20.0); CHLORIDE 104 MMOL/L (99-107); CREATININE 1.84 MG/DL (0.40-0.90); GLUCOSE 176 MG/DL (70-104); POTASSIUM 4.2 MMOL/L (3.5-5.1); SODIUM 135 MMOL/L (135-145); TOTAL CARBON DIOXIDE 19.6 MMOL/L (24-32); TOTAL PROTEIN 6.1 G/DL (6.4-8.2); eGFR 27 ML/MIN
[2023-05-02] MEDS ORDERED: normal saline 1000ml 1,000 ML IV ONE (15:45)
[2023-05-02] MEDS ORDERED: amiodarone 150mg/dext, iso-os 100 ML IV ONE (16:20)
[2023-05-02 17:05] LABS: CLARITY,URINE SLIGHTLY CLOUDY (Clear); COLOR,URINE STRAW (Yellow); GLUCOSE, URINE NEGATIVE (Neg); KETONES,URINE NEGATIVE (Neg); LEUKOCYTE ESTERASE ,URINE NEGATIVE (Neg); NITRITES, URINE NEGATIVE (Neg); OCCULT BLOOD,URINE NEGATIVE (Neg); PROTEIN,URINE NEGATIVE (Neg); UROBILINOGEN,URINE 0.2 E.U/dL (0.2-1.0)
[2023-05-02 17:22] LABS: APTT 41 SECONDS (22-32)
[2023-05-02] MEDS ORDERED: AMI200T PO (17:26)
[2023-05-02 17:33] LABS: UA COLLECTION TYPE CLN CATCH MIDSTREAM
[2023-05-02 17:36] LABS: HYALINE CASTS 0-3 /LPF (NEGATIVE); SQUAMOUS EPITHELIAL CELL,UR FEW /LPF (FEW)
[2023-05-02 17:37] LABS: BACTERIA,URINE FEW /HPF (Neg); RBC,URINE 0-2 /HPF (0-2); WBC,URINE 0-4 /HPF (0-4)
[2023-05-02 18:12] VITALS: BP 98/59; PULSE 78; RESP 14; O2SAT 100
== END 2023-05-02 18:33 | disposition home or self-care (01) ==
LOC: ER 14:18
DX: I48.91 Unspecified atrial fibrillation (principal); I13.0 Hypertensive heart and chronic kidney disease with heart failure and stage 1 through stage 4 chronic kidney disease, or unspecified chronic kidney disease; E11.22 Type 2 diabetes mellitus with diabetic chronic kidney disease; I50.9 Heart failure, unspecified; N18.9 Chronic kidney disease, unspecified; M19.90 Unspecified osteoarthritis, unspecified site; Z88.5 Allergy status to narcotic agent; Z88.6 Allergy status to analgesic agent; Z79.899 Other long term (current) drug therapy; Z90.710 Acquired absence of both cervix and uterus
CPT/HCPCS: 36415; 71045; 80053; 81001; 83880; 84484; 85025; 85610; 85730; 93005; 96374; 99285; J0282; J7030; 96361

== ENCOUNTER 2023-06-08 12:58 | Emergency (ER) | payer MEDICARE ==
[~2023-06-08] VITALS: Ht 167.6 cm; Wt 90.0 kg
--- NOTE | 2023-06-08 13:24 | NUR ---
Dr Jacques aware patient in room.
--- NOTE | 2023-06-08 13:32 | NUR ---
pt to ct
[2023-06-08 13:48] VITALS: TEMP 98.2
--- NOTE | 2023-06-08 13:48 | NUR ---
Pt back from CT, IV being established.
[2023-06-08] MEDS ORDERED: normal saline 1000ML IV soln IVB ONE (14:10)
[2023-06-08 14:12] LABS: BASOPHILS % (AUTO) 0.3 % (0-1); EOSINOPHILS # (AUTO) 0.1 X10'3 (0-0.9); EOSINOPHILS % (AUTO) 1.4 % (0-6); HEMATOCRIT 28.8 % (35.0-45.0); HEMOGLOBIN 8.9 g/dl (12.0-16.0); LYMPHOCYTES # (AUTO) 0.9 X10'3 (1.1-4.8); LYMPHOCYTES % (AUTO) 11.3 % (21-51); MEAN CORPUSCULAR HEMOGLOBIN 25.8 PG (27.0-31.0); MEAN CORPUSCULAR VOLUME 83.3 FL (78-98); MEAN PLATELET VOLUME 7.6 FL (7.4-10.4); MONOCYTES # (AUTO) 0.6 X10'3 (0-0.9); MONOCYTES % (AUTO) 8.1 % (2-12); NEUTROPHILS # (AUTO) 6.3 X10'3 (1.8-7.7); NEUTROPHILS % (AUTO) 78.9 % (42-75); PLATELET COUNT 316 X10'3 (140-440); RED BLOOD COUNT 3.45 X10'6 (4.20-5.60); RED CELL DISTRIBUTION WIDTH 20.8 % (11.5-14.5); WHITE BLOOD COUNT 7.9 X10'3 (4.5-11.0)
--- NOTE | 2023-06-08 14:12 | NUR ---
Pt with BP 81/50, MD Dr. Jacques updated on VSs, pt to receive NS IV fluid bolus.
--- NOTE | 2023-06-08 14:15 | NUR ---
Trauma status called off per Dr. Jacques.
[2023-06-08 14:24] LABS: APTT 40 SECONDS (22-32); INR 2.7 INR; PROTHROMBIN TIME 27.7 SECONDS (9.0-12.0)
--- NOTE | 2023-06-08 14:25 | NUR ---
Pt c-colar removed pt VO Dr. Jacques.
[2023-06-08 14:36] LABS: ETHANOL < 10 MG/DL (<10)
[2023-06-08 14:46] LABS: ALANINE AMINOTRANSFERASE 27 U/L (12-78); ALBUMIN 3.3 G/DL (3.4-5.0); ALBUMIN/GLOBULIN RATIO 1.1 (1.1-1.5); ALKALINE PHOSPHATASE 57 IU/L (46-116); ANION GAP 10 (8-16); ASPARTATE AMINO TRANSFERASE 27 U/L (10-37); BILIRUBIN,TOTAL 0.2 MG/DL (0.1-1.0); BLOOD UREA NITROGEN 45 MG/DL (7-18); BUN/CREATININE RATIO 26.5 (10.0-20.0); CALCIUM 9.1 MG/DL (8.5-10.1); CHLORIDE 108 MMOL/L (99-107); GLUCOSE 123 MG/DL (70-104); LIPASE 253 U/L (73-393); MAGNESIUM 2.4 MG/DL (1.5-2.4); POTASSIUM 4.8 MMOL/L (3.5-5.1); SODIUM 141 MMOL/L (135-145); TOTAL CARBON DIOXIDE 23.5 MMOL/L (24-32); TOTAL PROTEIN 6.2 G/DL (6.4-8.2); eCRCL 26 ML/MIN; eGFR 29 ML/MIN
[2023-06-08 15:37] LABS: BILIRUBIN,URINE NEGATIVE (Neg); CLARITY,URINE CLOUDY (Clear); COLOR,URINE YELLOW (Yellow); GLUCOSE, URINE NEGATIVE (Neg); KETONES,URINE NEGATIVE (Neg); LEUKOCYTE ESTERASE ,URINE NEGATIVE (Neg); NITRITES, URINE NEGATIVE (Neg); OCCULT BLOOD,URINE NEGATIVE (Neg); PH,URINE 5.5 (4.8-8.0); PROTEIN,URINE NEGATIVE (Neg); UROBILINOGEN,URINE 0.2 E.U/dL (0.2-1.0)
[2023-06-08 15:40] LABS: UA COLLECTION TYPE CLN CATCH MIDSTREAM
[2023-06-08 15:47] LABS: SQUAMOUS EPITHELIAL CELL,UR MANY /LPF (FEW)
[2023-06-08 15:48] LABS: BACTERIA,URINE 2+ /HPF (Neg); RBC,URINE 0-2 /HPF (0-2); WBC,URINE 0-4 /HPF (0-4)
[2023-06-08 16:05] VITALS: BP 118/68; PULSE 64; RESP 16; O2SAT 99
[2023-06-08 16:09] LABS: ANISOCYTOSIS 3+; PLATELET ESTIMATE NORMAL
[2023-06-08 16:10] LABS: ELLIPTOCYTES 1+; SCHISTOCYTES FEW
[2023-06-08 16:11] LABS: BURR CELLS FEW
[2023-06-08 16:12] LABS: URINE AMPHETAMINE SCREEN NEGATIVE (Neg); URINE BARBITUATE SCREEN NEGATIVE (Neg); URINE BENZODIAZEPINES SCREEN NEGATIVE (Neg); URINE CANNABINOID SCREEN NEGATIVE (Neg); URINE COCAINE SCREEN NEGATIVE (Neg); URINE METHADONE SCREEN NEGATIVE (Neg); URINE OPIATE SCREEN POSITIVE (Neg); URINE PHENCYCLIDINE SCREEN NEGATIVE (Neg)
== END 2023-06-08 16:07 | disposition home or self-care (01) ==
LOC: ER 12:58
DX: S60.211A Contusion of right wrist, initial encounter (principal); S00.33XA Contusion of nose, initial encounter; W19.XXXA Unspecified fall, initial encounter; Y93.89 Activity, other specified; Y92.89 Other specified places as the place of occurrence of the external cause; Y99.8 Other external cause status
CPT/HCPCS: 29125; 36415; 70450; 71045; 72125; 73110; 80053; 80305; 80320; 81001; 83690; 83735; 84484; 85008; 85025; 85610; 85730; 93005; 96360; 96361; 99285; J7030; L0172; A4565

== ENCOUNTER 2023-06-13 12:14 | Day surgery (SDC) | payer MEDICARE ==
[2023-06-09 16:24] LABS: BASOPHILS # (AUTO) 0.1 X10'3 (0-0.2); BASOPHILS % (AUTO) 1.9 % (0-1); EOSINOPHILS # (AUTO) 0.1 X10'3 (0-0.9); EOSINOPHILS % (AUTO) 1.3 % (0-6); HEMATOCRIT 27.6 % (35.0-45.0); HEMOGLOBIN 8.3 g/dl (12.0-16.0); LYMPHOCYTES # (AUTO) 0.7 X10'3 (1.1-4.8); LYMPHOCYTES % (AUTO) 8.6 % (21-51); MEAN CORPUSCULAR HEMOGLOBIN 25.5 PG (27.0-31.0); MEAN CORPUSCULAR HGB CONC 29.9 g/dL (33.0-36.5); MEAN CORPUSCULAR VOLUME 85.2 FL (78-98); MEAN PLATELET VOLUME 7.9 FL (7.4-10.4); MONOCYTES # (AUTO) 0.3 X10'3 (0-0.9); MONOCYTES % (AUTO) 4.2 % (2-12); NEUTROPHILS # (AUTO) 6.5 X10'3 (1.8-7.7); PLATELET COUNT 297 X10'3 (140-440); RED BLOOD COUNT 3.24 X10'6 (4.20-5.60); RED CELL DISTRIBUTION WIDTH 21.7 % (11.5-14.5); WHITE BLOOD COUNT 7.7 X10'3 (4.5-11.0)
[2023-06-09 16:34] LABS: APTT 43 SECONDS (22-32); INR 3.3 INR; PROTHROMBIN TIME 33.2 SECONDS (9.0-12.0)
[2023-06-09 16:38] LABS: ALBUMIN 3.4 G/DL (3.4-5.0); ANION GAP 9 (8-16); BLOOD UREA NITROGEN 49 MG/DL (7-18); BUN/CREATININE RATIO 22.9 (10.0-20.0); CALCIUM 9.2 MG/DL (8.5-10.1); CHLORIDE 106 MMOL/L (99-107); CHOL/HDL RATIO 2.6 (0.00-4.99); CHOLESTEROL 140 MG/DL (0-200); CREATININE 2.14 MG/DL (0.40-0.90); GLUCOSE 141 MG/DL (70-104); HDL CHOLESTEROL 54 MG/DL (35-60); LDL CHOLESTEROL 65 MG/DL (50-100); POTASSIUM 5.3 MMOL/L (3.5-5.1); SODIUM 139 MMOL/L (135-145); TOTAL CARBON DIOXIDE 24.5 MMOL/L (24-32); TRIGLYCERIDES 99 MG/DL (20-135); eGFR 22 ML/MIN
[2023-06-09 16:58] LABS: PLATELET ESTIMATE NORMAL
[2023-06-09 17:00] LABS: ANISOCYTOSIS 3+; HYPOCHROMASIA 1+; POLYCHROMASIA 1+
[2023-06-09 17:01] LABS: BURR CELLS FEW; ELLIPTOCYTES 1+; SCHISTOCYTES FEW
[~2023-06-13] VITALS: Ht 167.6 cm; Wt 90.9 kg
[2023-06-13] VITALS (11 sets, daily range): BP systolic 110–148; BP diastolic 53–77; PULSE 60–77; RESP 12–20; TEMP 97.3; O2SAT 95–100
[2023-06-13] MEDS ORDERED: fentaNYL/PF 50MCG/1 ML 2ML syringe IV ONE (12:35)
[2023-06-13] MEDS ORDERED: normal saline 1000ml 1,000 ML IV SCH (12:35)
[2023-06-13] MEDS ORDERED: MIDAZolam 1mg/ml 10ml vial IV ONE (12:35)
[2023-06-13 13:14] LABS: PROTHROMBIN TIME 20.2 SECONDS (9.0-12.0)
[2023-06-13] MEDS ORDERED: NITR0.4T48 SL (13:23)
[2023-06-13] MEDS ORDERED: PRE5T PO (13:23)
[2023-06-13] MEDS ORDERED: LINA290C PO (13:23)
[2023-06-13] MEDS ORDERED: SEMA0.258 SQ (13:23)
[2023-06-13] MEDS ORDERED: FLEC50TA PO (13:23)
[2023-06-13] MEDS ORDERED: ONDA8TAB13 PO (13:23)
[2023-06-13] MEDS ORDERED: OMEP40CA21 PO (13:23)
[2023-06-13] MEDS ORDERED: PRAM0.129 PO (13:23)
[2023-06-13] MEDS ORDERED: IRON45TA7 PO (13:23)
[2023-06-13] MEDS ORDERED: GLIP5TAB26 PO (13:23)
[2023-06-13] MEDS ORDERED: CALC625T62 PO (13:24)
[2023-06-13 13:53] LABS: ALBUMIN 3.3 G/DL (3.4-5.0); ANION GAP 6 (8-16); BLOOD UREA NITROGEN 28 MG/DL (7-18); BUN/CREATININE RATIO 20.1 (10.0-20.0); CALCIUM 9.4 MG/DL (8.5-10.1); CHLORIDE 106 MMOL/L (99-107); CREATININE 1.39 MG/DL (0.40-0.90); GLUCOSE 114 MG/DL (70-104); POTASSIUM 4.3 MMOL/L (3.5-5.1); SODIUM 138 MMOL/L (135-145); TOTAL CARBON DIOXIDE 25.7 MMOL/L (24-32); eCRCL 32 ML/MIN; eGFR 37 ML/MIN
[2023-06-16] MEDS ORDERED: IRON45TA7 PO (15:21)
== END 2023-06-13 16:35 | disposition home or self-care (01) ==
LOC: SSTAY O 12:14
PROVIDERS: ATTEND Student in an Organized Health Care Education/Training Program
DX: I48.0 Paroxysmal atrial fibrillation (principal); I25.10 Atherosclerotic heart disease of native coronary artery without angina pectoris; E78.5 Hyperlipidemia, unspecified; I65.29 Occlusion and stenosis of unspecified carotid artery; I11.0 Hypertensive heart disease with heart failure; I50.9 Heart failure, unspecified; I48.92 Unspecified atrial flutter; E11.9 Type 2 diabetes mellitus without complications; Z95.0 Presence of cardiac pacemaker; Z88.8 Allergy status to other drugs, medicaments and biological substances; Z79.84 Long term (current) use of oral hypoglycemic drugs; Z79.01 Long term (current) use of anticoagulants; Z79.899 Other long term (current) drug therapy
CPT/HCPCS: 36415; 80048; 80061; 82948; 85025; 85610; 85730; 92960; 93005; J2250; J3010; J7030; 85008; A4620; A6449

== ENCOUNTER 2024-05-05 21:05 | Emergency (ER) | payer MEDICARE ==
[~2024-05-05] VITALS: Ht 167.6 cm; Wt 90.9 kg
[~2024-05-05 21:05] MED LIST changes: -ALPR0.252 PO; -CYCL-394 PO; -DILT-35 PO; +FLEC50TA PO; +GLIP5TAB26 PO; +IRON45TA7 PO; +LINA290C PO; -LIRA0.6P2 SQ; -METF500T PO; +NITR0.4T48 SL; +OMEP40CA21 PO; +ONDA-245 PO; +PRAM0.129 PO; +PRE5T PO; +SEMA0.258 SQ
[2024-05-05 21:15] VITALS: BP 136/66; PULSE 70; RESP 16; TEMP 97.7; O2SAT 98
[2024-05-05] MEDS ORDERED: AMOX-117 PO (21:36)
[2024-05-05] MEDS: amox tr/potassium clavulanate 875/125mg TAB PO ONE (21:37)
== END 2024-05-05 21:47 | disposition home or self-care (01) ==
LOC: ER 21:06
DX: S51.811A Laceration without foreign body of right forearm, initial encounter (principal); I48.91 Unspecified atrial fibrillation; I11.0 Hypertensive heart disease with heart failure; I50.9 Heart failure, unspecified; E11.9 Type 2 diabetes mellitus without complications; M19.90 Unspecified osteoarthritis, unspecified site; Z79.899 Other long term (current) drug therapy; Z79.01 Long term (current) use of anticoagulants; Z88.8 Allergy status to other drugs, medicaments and biological substances; Z95.0 Presence of cardiac pacemaker; Z90.710 Acquired absence of both cervix and uterus; Z90.49 Acquired absence of other specified parts of digestive tract; W54.1XXA Struck by dog, initial encounter; Y93.89 Activity, other specified; Y92.89 Other specified places as the place of occurrence of the external cause; Y99.8 Other external cause status
CPT/HCPCS: 99283

== ENCOUNTER → 2024-05-15 | Emergency (ER) | payer MEDICARE ==
[~2024-05-15] VITALS: Ht 167.6 cm; Wt 92.0 kg
[2024-05-15 10:50] LABS: BASOPHILS % (AUTO) 0.3 % (0-1); EOSINOPHILS # (AUTO) 0.1 X10'3 (0-0.9); EOSINOPHILS % (AUTO) 2.3 % (0-6); HEMATOCRIT 42.3 % (35.0-45.0); HEMOGLOBIN 13.9 g/dl (12.0-16.0); LYMPHOCYTES # (AUTO) 1.2 X10'3 (1.1-4.8); LYMPHOCYTES % (AUTO) 20.2 % (21-51); MEAN CORPUSCULAR HEMOGLOBIN 33.6 PG (27.0-31.0); MEAN CORPUSCULAR HGB CONC 32.9 g/dL (33.0-36.5); MEAN CORPUSCULAR VOLUME 102.3 FL (78-98); MEAN PLATELET VOLUME 8.1 FL (7.4-10.4); MONOCYTES # (AUTO) 0.5 X10'3 (0-0.9); NEUTROPHILS # (AUTO) 3.9 X10'3 (1.8-7.7); NEUTROPHILS % (AUTO) 68.2 % (42-75); PLATELET COUNT 231 X10'3 (140-440); RED BLOOD COUNT 4.13 X10'6 (4.20-5.60); RED CELL DISTRIBUTION WIDTH 14.3 % (11.5-14.5); WHITE BLOOD COUNT 5.7 X10'3 (4.5-11.0)
[2024-05-15 11:12] LABS: ALANINE AMINOTRANSFERASE 59 U/L (12-78); ALBUMIN 3.6 G/DL (3.4-5.0); ALBUMIN/GLOBULIN RATIO 1.1 (1.1-1.5); ALKALINE PHOSPHATASE 96 IU/L (46-116); ANION GAP 8 (8-16); ASPARTATE AMINO TRANSFERASE 43 U/L (10-37); BILIRUBIN,TOTAL 0.7 MG/DL (0.1-1.0); BLOOD UREA NITROGEN 21 MG/DL (7-18); BUN/CREATININE RATIO 20.8 (10.0-20.0); CALCIUM 9.2 MG/DL (8.5-10.1); CHLORIDE 107 MMOL/L (99-107); CREATININE 1.01 MG/DL (0.40-0.90); GLUCOSE 177 MG/DL (70-104); POTASSIUM 4.2 MMOL/L (3.5-5.1); SODIUM 140 MMOL/L (135-145); TOTAL CARBON DIOXIDE 24.6 MMOL/L (24-32); TOTAL PROTEIN 6.8 G/DL (6.4-8.2); eCRCL 44 ML/MIN; eGFR 53 ML/MIN
[2024-05-15 11:20] LABS: PRO BRAIN NATRIURETIC PEPTIDE 619 PG/ML (0-450)
[2024-05-15 13:26] VITALS: BP 142/71; PULSE 67; RESP 16; TEMP 97.9; O2SAT 100
== END | disposition home or self-care (01) ==
LOC: ER 10:20
DX: R06.02 Shortness of breath (principal); I48.91 Unspecified atrial fibrillation; I13.10 Hypertensive heart and chronic kidney disease without heart failure, with stage 1 through stage 4 chronic kidney disease, or unspecified chronic kidney disease; E11.22 Type 2 diabetes mellitus with diabetic chronic kidney disease; N18.9 Chronic kidney disease, unspecified; I50.9 Heart failure, unspecified; M19.90 Unspecified osteoarthritis, unspecified site; Z90.49 Acquired absence of other specified parts of digestive tract; Z90.710 Acquired absence of both cervix and uterus; Z95.0 Presence of cardiac pacemaker; Z98.890 Other specified postprocedural states; Z88.8 Allergy status to other drugs, medicaments and biological substances; Z79.899 Other long term (current) drug therapy; Z79.01 Long term (current) use of anticoagulants; Z79.52 Long term (current) use of systemic steroids
CPT/HCPCS: 36415; 80053; 83880; 84484; 85025; 93005; 99284

== ENCOUNTER 2025-04-07 12:14 | Emergency (ER) | payer MEDICARE ==
[~2025-04-07] VITALS: Ht 167.6 cm; Wt 70.4 kg
[~2025-04-07 12:14] MED LIST changes: +CARI1.5C PO; +FURO20TA4; +GABA-530 PO; +GLIP-297 PO; -GLIP5TAB26 PO; +LACT1CAP76 PO; -LINA290C PO; -LISI1TAB49 PO; -LORA-268 PO; -METO-539 PO
[2025-04-07 12:19] VITALS: BP 145/78; PULSE 71; RESP 15; O2SAT 95
--- NOTE | 2025-04-07 13:24 | Physician Documentation ---
History of Present Illness ~ Chief Complaint: Laceration Stated Complaint: L HAND LAC Time Seen by MD: 12:59 Primary Medical Doctor: CAROL álvarez This year old female presents to the ED with a complaint of left hand pain laceration today this is she caught her left hand on the posterior aspect on a piece of furniture causing a skin tear. Patient takes blood thinners as notable ecchymosis on her hand Day of Onset: Apr 07, 2025 Tetanus Within 5 Years: No Medication Reconciliation Allergies: Coded Allergies: naproxen (Verified Allergy, Unknown, 07/15/24) ibuprofen (Verified Adverse Reaction, Severe, Nose bleeds, 07/15/24) Scheduled Amiodarone Hcl (Cordarone), 200 MG PO DAILY, (Reported) Atorvastatin Calcium (Atorvastatin Calcium), 1 TAB PO DAILY, (Reported) Bupropion HCl (Bupropion HCl Sr), 1 TAB PO DAILY, (Reported) Calcium Polycarbophil (Fiber Lax), 625 MG PO BID, (Reported) Cariprazine Hydrochloride (Vraylar), 1 CAP PO DAILY, (Reported) Flecainide Acetate (Flecainide Acetate), 1 TAB PO BID, (Reported) Furosemide (Furosemide), 1 DAILY, (Reported) Glipizide (Glipizide Er), 1 TAB PO QAM, (Reported) Iron,Carbonyl (Feosol), 65 MG PO BID Lactobacillus Casei/Folic Acid (Restora Rx Capsule), 1 CAP PO DAILY Omeprazole (Prilosec), 1 CAP PO QAM, (Reported) Prednisone (predniSONE tablet), 1 TAB PO DAILY, (Reported) Semaglutide (Ozempic), 2.5 MG SQ Q7D, (Reported) Warfarin Sodium (Warfarin Sodium), 1 TAB PO HS, (Reported) Scheduled PRN Baclofen (Baclofen), 1 TAB PO BID PRN for pain, (Reported) Gabapentin (Gabapentin), 3 CAP PO HS PRN for pain, (Reported) Nitroglycerin (Nitroglycerin), 0.4 MG SL [id number] X 3 PRN for chest pain, (Re ported) Ondansetron 8mg ODT (Ondansetron Odt), 1 TAB PO Q8H PRN for nausea/vomiting, (Reported) Pramipexole Di-Hcl (Pramipexole Dihydrochloride), 1 TAB PO HS PRN for Restless Leg, (Reported) Zolpidem Tartrate (Zolpidem Tartrate), 1 TAB PO HS PRN for sleep, (Reported) Past Medical History Past Medical History: Atrial Fibrillation, Congestive Heart Failure, Hypertensi on, Constipation, Chronic Kidney Disease, Diabetes, Arthritis Past Surgical History: cholecystectomy, hysterectomy, pacemaker Other Past Surgical History: toe surgery, ablation Patient History: (CHF) Congestive heart failure MOTHER (BREAST, UTERINE, CERVICAL CANCERS), , Age: 82, Cause: CHF (congestive heart failure) (CVA) Cerebrovascular accident MOTHER (BREAST, UTERINE, CERVICAL CANCERS), , Age: 82, Cause: CHF (congestive heart failure) (Cancer) Malignant carcinoid tumor MOTHER (BREAST, UTERINE, CERVICAL CANCERS), , Age: 82, Cause: CHF (congestive heart failure) FHx: multiple sclerosis FATHER, , Age: 67, Cause: Fire accident Other Past Family History: none Alcohol Use: None Drug Use: none Lives with: Family Lives In: Home Occupation: retired Physical Exam Vital Signs: Temperature: 98.3, Source: Temporal, Heart Rate: 71, Respiratory Rate: 15, BP: 145/78, Pulse Oximetry: 95, Weight: 70.400 Physical Exam General: Alert, no apparent distress. HEENT: PERRL, EOMI, no injection, moist mucous membranes. Extremities: . 5 cm skin tear posterior left hand Neurologic: Oriented x4. Psychiatric: Normal mood and affect. Skin: Normal color, warm and dry. No edema, no ecchymosis. Procedures Laceration/Wound Repair Laceration : Anesthesia: Lidocaine Prep: irrigated by physician Margins: revised Repaired: skin Wound Repaired With: Steri-strips Dressing Applied: non-adherent Tolerated Procedure Well?: yes, no complications Progress Results/Orders Results/Orders Completed Orders - TITUS MASTERS NP Lidocaine/Epi/Tetracaine Top (Lidocaine/ (04/07/25 14:45) Medications Received in ER Medications (Trade) Dose Ordered Sig/Darshan Route PRN Reason Start Time Stop Time Status Last Admin Dose Admin (LIDOcaine/ epiNEPH/ tetracaine top yelena 3ml SYR) 5 ml ONCE ONCE TOP 04/07/25 14:45 04/07/25 14:48 DC 04/07/25 15:08 5 ML Vital Signs 04/07/25 12:19 Temp 98.3 Pulse 71 Resp 15 B/P (MAP) 145/78 Pulse Ox 95 Medical Decision Making Findings SKIN TEAR PROXIMALLY AND WAS STERI-STRIPS AND BENZOIN. PATIENT TOLERATED THIS WELL ADVISED HER TO KEEP A CLOSE EYE ON THE WOUND FOR AND SIGNS OF INFECTION INCLUDING REDNESS AND DISCHARGE Differential Dx:Considerations: Include: Abrasion, Avulsion, Contusion, Laceration, Fracture, Hematoma, Neurovascular injury, Retained foreign body, Other Departure Disposition: 01 HOME / SELF CARE / HOMELESS Impression: Primary Impression: Laceration Condition: Stable Discharge Instructions: Laceration Care (Skin Glue) Referrals: NO PRIMARY CARE PROVIDER (PCP) Prescriptions Mupirocin* (Bactroban*) 22 Gm Tube 1 APPLIC TOP Q8H for 5 Days, #15 GM apply to affected area(s) Prov: TITUS MASTERS NP 04/07/25 Signature Scribe Signature: d Attestation: Scribed for Titus Masters It Service Technician by Titus Terrazas NP . 04/07/25 13:23 TITUS MASTERS NP Apr 07, 2025 13:24
[2025-04-07] MEDS: LIDOcaine/epinephrine/tetracaine TOPICAL sol 3 ML syringe TOP ONE (15:08)
[2025-04-07] MEDS ORDERED: MUPI22OI30 TOP (15:16)
[2025-04-07 15:30] VITALS: TEMP 98.3
== END 2025-04-07 15:32 | disposition home or self-care (01) ==
LOC: ER 12:14
DX: S61.412A Laceration without foreign body of left hand, initial encounter (principal); E11.22 Type 2 diabetes mellitus with diabetic chronic kidney disease; I13.0 Hypertensive heart and chronic kidney disease with heart failure and stage 1 through stage 4 chronic kidney disease, or unspecified chronic kidney disease; I50.9 Heart failure, unspecified; N18.9 Chronic kidney disease, unspecified; I48.91 Unspecified atrial fibrillation; M19.90 Unspecified osteoarthritis, unspecified site; Z88.6 Allergy status to analgesic agent; Z88.8 Allergy status to other drugs, medicaments and biological substances; Z90.49 Acquired absence of other specified parts of digestive tract; Z90.710 Acquired absence of both cervix and uterus; Z95.0 Presence of cardiac pacemaker; X58.XXXA Exposure to other specified factors, initial encounter; Y93.89 Activity, other specified; Y92.89 Other specified places as the place of occurrence of the external cause; Y99.8 Other external cause status
CPT/HCPCS: 99284; A6258; A6402; A6449; J3490; J7030

== ENCOUNTER 2025-05-23 09:21 | Outpatient (CLI) | payer MEDICARE ==
[~2025-05-23 09:21] MED LIST changes: -AMI200T PO; +AMIO200T76 PO
--- NOTE | 2025-05-23 13:17 | RADIOLOGY REPORT ---
Exam: CT CT CHEST ABDOMEN PELVIS History: ABNORMAL WEIGHT LOSS Comparison Study: DI CHEST,SINGLE VIEW on DOS: 07/15/24, CT CT STROKE ALERT on DOS: 07/15/24, CT CT HEA D on DOS: 06/16/23, DI CHEST,SINGLE VIEW on DOS: 06/08/23, CT CT HEAD on DOS: 06/08/23 Technique: Multidetector spiral CT of the chest, abdomen and pelvis was performed from lower neck to pubic symphysis. Intravenous contrast was administered during this examination. Portal venous imagin g was obtained. Axial, coronal and sagittal multiplanar reformats were performed by the technologist on a separate workstation. Radiation Dose : 1. Chest/Abdomen/Pelvis: CTDIvol 20.8 mGy, DLP 1878.4 mGy*cm. Findings: Lower neck: Normal thyroid. Lungs: No focal consolidation, pleural effusion or pneumothorax. Heart/Vascular Structures: Cardiomegaly. Coronary artery calcifications. Vascular calcifications of t he aorta. Lymph Nodes: No adenopathy Pleura: No pleural effusion or significant pneumothorax. Liver: The liver is normal in size. No focal lesions. Normal hepatic vascular enhancement. Gallbladder and Biliary Tree: Unremarkable Spleen: Unremarkable Pancreas: The pancreas is normal in appearance without focal lesions or abnormal enhancement. Adrenal Glands: Unremarkable Kidneys: Kidneys demonstrate normal symmetric enhancement without focal lesions, calculi or hydroneph rosis. Right lower pole cyst measures 3.4 cm. Bladder: Unremarkable Bowel: Gastric lap band in-situ. Moderate volume colonic stool. The appendix is not visualized; howev er, no secondary findings of acute appendicitis identified. Ascites: Absent Lymphadenopathy: No mesenteric, retroperitoneal or periportal lymphadenopathy. Abdominal Wall and Mesentery: Moderate periaortic and retroperitoneal inflammatory change. Vasculature: The visualized abdominal aorta is normal in size and caliber. Abdominal and pelvic vess els demonstrate normal enhancement. Pelvic Organs: Unremarkable Musculoskeletal: No aggressive focal bony lesions, acute fractures or dislocation. IMPRESSION: Cardiomegaly. Coronary artery disease. Nonspecific indeterminate moderate periaortic and retroperitoneal inflammatory change. Differential c onsiderations could include early changes of retroperitoneal fibrosis and lymphoma.
== END 2025-05-23 23:59 | disposition home or self-care (01) ==
LOC: RAD 09:21
PROVIDERS: ATTEND Physician Assistant
DX: N28.1 Cyst of kidney, acquired (principal); R63.4 Abnormal weight loss; I25.10 Atherosclerotic heart disease of native coronary artery without angina pectoris; I51.7 Cardiomegaly; R19.5 Other fecal abnormalities
CPT/HCPCS: 71250; 74176

== ENCOUNTER 2025-07-18 10:27 | Day surgery (SDC) | payer MEDICARE ==
[~2025-07-18] VITALS: Ht 167.6 cm; Wt 79.4 kg
[2025-07-18] VITALS (9 sets, daily range): BP systolic 105–124; BP diastolic 56–66; PULSE 60–76; RESP 14–16; TEMP 97.9; O2SAT 97–98
[~2025-07-18 10:27] MED LIST changes: +AMIO100T4 PO; -AMIO200T76 PO; +BUPR-344 PO; -BUPR-72 PO; -CALC625T62 PO; -CARI1.5C PO; +EMPA25TA PO; -FLEC50TA PO; -FURO20TA4; -GABA-530 PO; -GLIP-297 PO; -IRON45TA7 PO; -LACT1CAP76 PO; +LIDO1ADH78 TOP; +LIDOcaine 2% Viscous 15ml cup MM ONE; +MAGN400T39 PO; +MELA3CAP2 PO; +METF-436 PO; +METH-797 PO; +METO-395 PO; -NITR0.4T48 SL; +OMEP20CA16 PO; -OMEP40CA21 PO; -ONDA-245 PO; +OXYC-658 PO; -PRAM0.129 PO; -SEMA0.258 SQ; +TRAZ-251 PO; -WARF2.5T82 PO; -ZOLP5TAB8 PO; +ringers solution, lacted 1,000 ML IV SCH
--- NOTE | 2025-07-18 11:05 | ELECTROCARDIOGRAPH REPORT ---
[facility] Test Date: 2025-07-18 Test Time: 11:03:27 Pat Name: TOM WOODS Department: [facility] Patient ID: [facility]-[id number] Room: Gender: F Singer Songwriter: BLANCA : 1945 Requested By: ISAIAH ALFONSO Order Number: [id number] Reading MD: Dr. William Ortega Measurements Intervals [place] Rate: 63 P: 0 NE: 267 QRS: -11 QRSD: 104 T: -44 QT: 471 QTc: 483 Interpretive Statements Atrial-paced rhythm Nonspecific T abnormalities, anterior leads Electronically Signed On 07-21-2025 7:11:[address] William Ortega Please click the below link to view image of tracing.
[2025-07-18] MEDS: MIDAZolam 1 MG/ML 5ML VIAL IV ONE (16:29)
[2025-07-18] MEDS: fentaNYL/PF 50MCG/1 ML 2ML syringe IV ONE (16:29)
== END 2025-07-18 15:40 | disposition home or self-care (01) ==
LOC: GI LAB 10:27
PROVIDERS: ATTEND Internal Medicine Gastroenterology
DX: R63.4 Abnormal weight loss (principal); K63.5 Polyp of colon; D12.8 Benign neoplasm of rectum; K29.50 Unspecified chronic gastritis without bleeding; K57.30 Diverticulosis of large intestine without perforation or abscess without bleeding; K31.89 Other diseases of stomach and duodenum; I13.0 Hypertensive heart and chronic kidney disease with heart failure and stage 1 through stage 4 chronic kidney disease, or unspecified chronic kidney disease; E11.22 Type 2 diabetes mellitus with diabetic chronic kidney disease; N18.9 Chronic kidney disease, unspecified; I50.9 Heart failure, unspecified; I48.91 Unspecified atrial fibrillation; E78.5 Hyperlipidemia, unspecified; K21.9 Gastro-esophageal reflux disease without esophagitis; F32.A Depression, unspecified; M81.0 Age-related osteoporosis without current pathological fracture; M19.90 Unspecified osteoarthritis, unspecified site; Z90.49 Acquired absence of other specified parts of digestive tract; Z90.710 Acquired absence of both cervix and uterus; Z68.28 Body mass index [BMI] 28.0-28.9, adult; Z88.6 Allergy status to analgesic agent; Z88.8 Allergy status to other drugs, medicaments and biological substances
CPT/HCPCS: 43239; 45385; 88305; 88342; 93005; A4620; J2250; J3010; J7120; Z7512; Z7610; 99152; 99153